=== PATIENT | female | born 1945 | race American Indian/Alaskan Native ===

== ENCOUNTER → 2016-12-29 | Outpatient (CLI) | payer MEDICARE, OTHER ==
[~2016-12-29] MED LIST: ACET-1600 PO; ASCO500T8 PO; CHOL100018 PO; CYAN1TAB29 PO; GLUC-121 PO; MULT-658 PO
[2016-12-29 10:12] LABS: ASPARTATE AMINO TRANSFERASE 11 U/L (15-37); BLOOD UREA NITROGEN 8 mg/dL (7-18)
== END | disposition home or self-care (01) ==
LOC: STAR 08:25
PROVIDERS: ATTEND Urology
DX: Z01.818 Encounter for other preprocedural examination (principal); D49.4 Neoplasm of unspecified behavior of bladder
CPT/HCPCS: 36415; 80053; 81001; 87086; 93005

== ENCOUNTER 2017-01-11 10:04 | Day surgery (SDC) | payer MEDICARE, OTHER ==
[~2017-01-11] VITALS: Ht 172.7 cm; Wt 62.0 kg
[2017-01-11] MEDS ORDERED: LACTATED RINGERS 1,000 ML IV SCH (10:34)
[2017-01-11 10:35] VITALS: BP 132/84
[2017-01-11] MEDS ORDERED: FENTANYL PF 100 MCG/2ML ONE (11:46)
[2017-01-11] MEDS ORDERED: FENTANYL PF 100 MCG/2ML IV PRN (12:30)
[2017-01-11] MEDS ORDERED: LABETALOL 5MG/ML, 20ML IV PRN (12:30)
[2017-01-11] MEDS ORDERED: PROMETHAZINE 25 MG/ML, 1ML IV PRN (12:30)
[2017-01-11] MEDS ORDERED: OXYcodone 5 MG/5 ML ORAL.SOL UDC PO PRN (12:30)
[2017-01-11] MEDS ORDERED: HYDROmorphone 1 MG/ML, 1ML IV PRN (12:30)
[2017-01-11] MEDS ORDERED: hydrALAzine 20 MG/ML, 1ML IV PRN (12:30)
[2017-01-11] MEDS ORDERED: MITOMYCIN 40 MG, WATER FOR INJECTION,STERILE 20 ML in SYRINGE 1 EA INTVESIC ONE (12:30)
[2017-01-11] MEDS ORDERED: ONDANSETRON 2MG/ML, 2ML IVPush PRN (12:30)
[2017-01-11] MEDS ORDERED: ONDANSETRON 2MG/ML, 2ML ONE (13:04)
== END 2017-01-11 15:20 | disposition home or self-care (01) ==
LOC: OUT 10:04
PROVIDERS: ATTEND Urology
DX: D49.4 Neoplasm of unspecified behavior of bladder (principal); N30.11 Interstitial cystitis (chronic) with hematuria; Z87.440 Personal history of urinary (tract) infections; M19.90 Unspecified osteoarthritis, unspecified site; Z98.51 Tubal ligation status; Z80.51 Family history of malignant neoplasm of kidney; Z82.49 Family history of ischemic heart disease and other diseases of the circulatory system
CPT/HCPCS: 51720; 52234; 88305; J2405; J3010; J7120; J9280